=== PATIENT | female | born 1985 | race Caucasian/White ===

== ENCOUNTER 2018-04-21 13:56 | Emergency (ER) | payer OTHER ==
[2018-04-21 14:07] VITALS: TEMP 97.7
--- NOTE | 2018-04-21 15:11 | ED PDOC ---
HPI: Psych/Substance Abuse Time Seen by Provider: 04/21/18 14:55 Chief Complaint (Nursing): Psychiatric Evaluation Chief Complaint (Provider): Psychiatric Evaluation History Per: Patient Onset/Duration Of Symptoms: Days Current Symptoms Are (Timing): Gone Now Suicide/Self Injury Attempted (Context): None Modifying Factor(s): None Additional Complaint(s): 32 y/o female brought to the ED for psychiatric evaluation. Patient states she felt frustrated due to recent accident and may have stated she wanted to hurt herself. Patient states that a few days ago she was at a store when the refrigerator door fell on her head. Patient sustained a head laceration, back and neck pain. Patient reports she was supposed to go to the doctor today for a follow up and get a prescription for physical therapy. Patient states she is here today after yelling at a friend stating something similar to "If the door did this much damage, it might as well have done more." However, patient doesn' t exactly recall the exact statement she made. Patient denies any suicidal ideation. Patient reports saying that statement was out of frustration because she needed help her deal with the pain. Patient reports of taking Flexeril for pain to the neck and back. PMD: In [place] Past Medical History Reviewed: Historical Data, Nursing Documentation, Vital Signs Vital Signs: Last Vital Signs Temp 97.7 F 04/21/18 14:01 Pulse 84 04/21/18 14:01 Resp 18 04/21/18 14:01 BP 148/73 04/21/18 14:01 Pulse Ox 99 04/21/18 14:01 - Medical History PMH: No Chronic Diseases - Surgical History Surgical History: No Surg Hx - Family History Family History: States: Unknown Family Hx - Allergies Allergies/Adverse Reactions: Allergies Allergy/AdvReac Type Severity Reaction Status Date / Time No Known Allergies Allergy Verified 04/21/18 14:01 Review of Systems ROS Statement: Except As Marked, All Systems Reviewed And Found Negative Musculoskeletal: Positive for: Neck Pain, Back Pain Psych: Positive for: Other (Psychiatric Evaluation ) Physical Exam - Reviewed Nursing Documentation Reviewed: Yes Vital Signs Reviewed: Yes - Physical Exam Appears: Positive for: Non-toxic, No Acute Distress Head Exam: Positive for: ATRAUMATIC, NORMOCEPHALIC Skin: Positive for: Normal Color, Warm Eye Exam: Positive for: Normal appearance Neck: Positive for: Normal Cardiovascular/Chest: Negative for: Bradycardia, Tachycardia Respiratory: Negative for: Accessory Muscle Use, Respiratory Distress Back: Positive for: Normal Inspection, Muscle Spasm, Other (Paracervical spinal tenderness ) Extremity: Positive for: Normal ROM Neurologic/Psych: Positive for: Alert, Oriented (x3). Negative for: Motor/ Sensory Deficits - Laboratory Results Urine POC: Negative - ECG O2 Sat by Pulse Oximetry: 99 (RA) Pulse Ox Interpretation: Normal - Progress ED Course And Treament: Seen by crisis d/w Dr. Stoner diagnosis Adjustment disorder d/c home TORADOL 30 MG IM X 1 DOSE FOR NECK PAIN Medical Decision Making Medical Decision Making: Scribe Attestation: Documented by Mary Bello, acting as a scribe for David Correa PA-C. Provider Scribe Attestation: All medical record entries made by the Scribe were at my direction and personally dictated by me. I have reviewed the chart and agree that the record accurately reflects my personal performance of the history, physical exam, medical decision making, and the department course for this patient. I have also personally directed, reviewed, and agree with the discharge instructions and disposition. Disposition - Clinical Impression Clinical Impression: Adjustment disorder - Patient ED Disposition Is Patient to be Admitted: No - Disposition Disposition: Routine/Home Disposition Time: 16:58 Condition: IMPROVED Instructions: Whiplash, Adjustment Disorder, Radiculopathy, Cervical Muscle Strain (DC)
[2018-04-21 17:01] VITALS: BP 131/70; PULSE 78; RESP 16
[2018-04-22 16:47] VITALS: O2SAT 99
== END 2018-04-21 17:01 | disposition home or self-care (01) ==
LOC: H.ER 13:56
DX: F43.20 Adjustment disorder, unspecified (principal)
CPT/HCPCS: 81025; 96372; 99283; J1885